=== PATIENT | female | born 1955 | race Caucasian/White ===

== ENCOUNTER → 2016-03-08 | Outpatient (CLI) | payer OTHER ==
--- NOTE | 2016-03-08 17:29 | WOMENS IMAGING REPORT ---
EXAM DESCRIPTION: 3D SCREENING MAMMO BILAT COMPLETED DATE/TIME: 03/08/2016 9:53 am REASON FOR STUDY: Z12.31 ROUTINE SCREENING MAMMO Z12.31 ENCNTR SCREEN MAMMOGRAM FOR MALIGNANT NEOPL ASM OF ESVIN COMPARISON: None. TECHNIQUE: Standard craniocaudal and mediolateral oblique views of each breast recorded using digita l acquisition and breast tomosynthesis. LIMITATIONS: None. FINDINGS: No masses, calcifications or architectural distortion. No areas of suspicion. Read with the assistance of CAD. .[facility] - R2 Cenova Version 1.3 .[facility] Imaging - R2 Cenova Version 1.3 .[facility] Imaging - R2 Cenova Version 2.4 .[facility] - R2 Cenova Version 2.4 .[facility] - R2 Mattress Renovator Version 9.2 BREAST DENSITY: b. There are scattered areas of fibroglandular density. BIRAD: 1 NEGATIVE RECOMMENDATION: ROUTINE SCREENING COMMENT: PATIENT NOTIFIED BY LETTER. The [employer] recommends an annual screening mammogram for women aged 40 years or over. Each patient will receive a reminder prior to the anniversary date of her mammogram. The [employer] (ACR) has developed recommendations for screening MRI of the breast s in certain patient populations, to be used in conjunction with mammography. Breast MRI surveillanc e may be appropriate for women with more than 20% lifetime risk of developing breast cancer as deter mined by genetic testing, significant family history of the disease, or history of mantle radiation f or Hodgkins Disease. ACR Practice Guidelines 2008. DBT Technology DBT is a type of tomographic mammography. With conventional mammography, overlapping breast tissue ma y make lesions difficult to detect, even with good compression. DBT uses an x-ray tube that rotates a round the breast, taking images at different angles. These images are then combined to create thin sl ices of the breast that the radiologist can view as a 3D reconstruction. The Sentisis unit can perform full-field digital mammograms (2D imaging); or DBT (3D imaging); or both, in a combination mode that quickly performs both the mammogram and the tomosynthesis scan while the breast is still compressed. PQRS 6045F: Fluoroscopic imaging is not utilized for breast tomosynthesis. TECHNICAL DOCUMENTATION: FINDING NUMBER: (1) ASSESSMENT: (1) JOB ID: [id number]- All Rights Reserved
== END ==
LOC: WI 08:45
PROVIDERS: ATTEND Family Medicine
DX: Z12.31 Encounter for screening mammogram for malignant neoplasm of breast (principal)
CPT/HCPCS: 77063; G0202; 77067

== ENCOUNTER → 2016-05-04 | Outpatient (CLI) | payer OTHER ==
[2016-05-04 17:20] LABS: FREE T3 3.15 pg/mL (2.77-5.27)
[2016-05-04 17:33] LABS: THYROID STIMULATING HORMONE 1.33 uIU/mL (0.47-4.68)
== END ==
LOC: OD 15:41
PROVIDERS: ATTEND Family Medicine
DX: E89.0 Postprocedural hypothyroidism (principal); E53.9 Vitamin B deficiency, unspecified
CPT/HCPCS: 36415; 82607; 84439; 84443; 84481

== ENCOUNTER 2016-08-25 15:53 | Emergency (ER) | payer OTHER ==
--- NOTE | 2016-08-25 17:07 | RADIOLOGY REPORT (SQ) ---
EXAM DESCRIPTION: CT LTD RENAL STONE PROTOCOL ON COMPLETED DATE/TIME: 08/25/2016 4:48 pm REASON FOR STUDY: Asymptomatic growth hematuria COMPARISON: None. TECHNIQUE: CT scan of the abdomen and pelvis performed without intravenous or oral contrast. Images reviewed with lung, soft tissue, and bone windows. Reconstructed coronal and sagittal MPR images revi ewed. All images stored on PACS. All CT scanners at this facility use dose modulation, iterative reconstruction, and/or weight based d osing when appropriate to reduce radiation dose to as low as reasonably achievable (ALARA). [facility]: Dose Right [facility]: CareDose [facility]: Dose Right [facility]: Teradose 4D [facility]: Smart [employer] RADIATION DOSE: Up-to-date CT equipment and radiation dose reduction techniques were employed. CTDIv ol: 7.1 mGy. DLP: 384 mGy-cm.mGy. LIMITATIONS: None. FINDINGS: LOWER CHEST: No significant findings. No nodules or infiltrates. NON-CONTRASTED LIVER, SPLEEN, ADRENALS: Evaluation limited by lack of IV contrast. No identified sign ificant masses. PANCREAS: No masses. No peripancreatic inflammatory changes. GALLBLADDER: No identified stones by CT criteria. No inflammatory changes to suggest cholecystitis. RIGHT KIDNEY AND URETER: No suspicious masses. Assessment limited by lack of IV contrast. No signif icant calcifications. No hydronephrosis or hydroureter. LEFT KIDNEY AND URETER: No suspicious masses. Assessment limited by lack of IV contrast. No signifi cant calcifications. No hydronephrosis or hydroureter. AORTA AND RETROPERITONEUM: No aneurysm. No retroperitoneal masses or adenopathy. BOWEL AND PERITONEAL CAVITY: Colonic diverticula without acute infectious or inflammatory changes. No free fluid. APPENDIX: Normal. PELVIS, BLADDER, AND ABDOMINAL WALL:No abnormal masses. No free fluid. Bladder normal. BONES: No significant findings. OTHER: No other significant finding. IMPRESSION: No urolithiasis. Diverticulosis without evidence of diverticulitis. TECHNICAL DOCUMENTATION: JOB ID: [id number] Quality ID # [id number]: Final reports with documentation of one or more dose reduction techniques (e.g., Au tomated exposure control, adjustment of the mA and/or kV according to patient size, use of iterative reconstruction technique) 2010 [employer]- All Rights Reserved
[2016-08-25 17:20] LABS: APPEARANCE,URINE CLEAR; BILIRUBIN,URINE NEGATIVE (NEGATIVE); GLUCOSE, URINE NEGATIVE (NEGATIVE); KETONES,URINE NEGATIVE (NEGATIVE); LEUKOCYTE ESTERASE,URINE NEGATIVE (NEGATIVE); NITRITE,URINE NEGATIVE (NEGATIVE); PROTEIN,URINE NEGATIVE (NEGATIVE); URINE SPECIFIC GRAVITY 1.001; UROBILINOGEN,URINE NEGATIVE mg/dL (<2.0)
[2016-08-25 17:30] VITALS: BP 146/63
--- NOTE | 2016-08-25 17:48 | ER Document Report ---
ED GI/ - General Chief Complaint: Pain With Urination Stated Complaint: URINARY PAIN Time Seen by Provider: 08/25/16 16:25 Notes: Patient says that she noted asymptomatic blood in her urine . Patient has a picture on her cell phone showing a container with very definitely bloody looking liquid in it. She has never had that happen before. She had not had any urinary tract or urine stone symptoms. She went to a local urgent care where she was referred for a urine culture and then followed up with her primary care provider, Dr. Tolentino, but patient was never contacted by her primary care provider. After the first day, her symptoms subsided but today, about 11:30 AM, patient began to experience pain in her left side and in the left groin region and feeling like knives running down towards her urethra. She has not had any nausea or vomiting or diarrhea. Has not had any more blood in her urine. Only feeling of urinary urgency but no other UTI symptoms. Has not had a fever. Patient has had a hysterectomy. TRAVEL OUTSIDE OF THE [place] IN LAST 30 DAYS: No - Related Data Allergies/Adverse Reactions: milk Allergy (Mild, Verified 08/25/16 16:04) cephalexin monohydrate [From Keflex] Allergy (Verified 08/25/16 16:04) Ramón Fco syndrome iodine [Iodine] Allergy (Verified 08/25/16 16:04) levofloxacin [From Levaquin] Allergy (Verified 08/25/16 16:04) Ramón Fco syndrome meloxicam [From Mobic] Allergy (Verified 08/25/16 16:04) morphine [Morphine] Allergy (Verified 08/25/16 16:04) Sulfa (Sulfonamide Antibiotics) Allergy (Verified 08/25/16 16:04) cantaloupe Allergy (Uncoded 08/25/16 16:04) itching Past Medical History - Social History Smoking Status: Never Smoker Chew tobacco use (# tins/day): No Frequency of alcohol use: None Drug Abuse: None Family History: Reviewed & Not Pertinent Patient has suicidal ideation: No Patient has homicidal ideation: No - Past Medical History Cardiac Medical History: Reports: Hx Hypercholesterolemia, Hx Heart Murmur Pulmonary Medical History: Reports: Hx Bronchitis, Hx Pneumonia - 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, Hx Sleep Apnea - uses C-PAP EENT Medical History: Reports: Ears - History of Mnire's disease Neurological Medical History: Reports: Hx Cerebrovascular Accident Endocrine Medical History: Reports: Hx Hypothyroidism GI Medical History: Reports: Hx Gastroesophageal Reflux Disease, Hx Hiatal Hernia, Hx Ulcerative Colitis Musculoskeltal Medical History: Reports Hx Arthritis Psychiatric Medical History: Reports: Hx Anxiety, Hx Depression, Hx Post Traumatic Stress Disorder Past Surgical History: Reports: Hx Abdominal Surgery - Wiliam fundoplication, Hx Genitourinary Surgery - wiliam, Hx Gynecologic Surgery - hysterectomy, Hx Hysterectomy, Hx Orthopedic Surgery - rotator cuff bilaterally, Hx Thyroid Surgery, Hx Tonsillectomy - Immunizations Hx Diphtheria, Pertussis, Tetanus Vaccination: Yes Hx Pneumococcal Vaccination: 02/26/08 Review of Systems - Review of Systems Notes: REVIEW OF SYSTEMS: CONSTITUTIONAL : Denies fever. EENT: Denies eye, ear, nose or mouth or throat pain or other symptoms. CARDIOVASCULAR: Denies chest pain. RESPIRATORY: Denies cough, chest congestion, or shortness of breath. GASTROINTESTINAL: See HPI. GENITOURINARY: See HPI. MUSCULOSKELETAL: Denies back or neck pain. Denies joint pain or swelling. SKIN: Denies rash or skin lesions. NEUROLOGICAL: Denies LOC or altered mental status. Denies headache. Denies sensory loss or motor deficits. ALL OTHER SYSTEMS REVIEWED AND NEGATIVE. Physical Exam - Vital signs Vitals: Temp Pulse Resp BP Pulse Ox 97.9 F 94 16 169/76 H 100 08/25/16 16:04 08/25/16 16:04 08/25/16 16:04 08/25/16 16:04 08/25/16 16:04 Interpretation: Normal, Hypertensive - Minimal - Notes Notes: PHYSICAL EXAMINATION: GENERAL: Well-appearing, in no acute distress. HEAD: Atraumatic, normocephalic. EYES: Pupils equal round and reactive to light, extraocular movements intact. ENT: oropharynx clear without exudates. Moist mucous membranes. NECK: Normal range of motion, supple. LUNGS: Breath sounds clear and equal bilaterally. HEART: Regular rate and rhythm without murmurs. ABDOMEN: Soft, nontender. No guarding or rebound. BACK: No tenderness throughout entire back. EXTREMITIES: Normal range of motion without pain. NEUROLOGICAL: Normal speech, normal gait. Normal sensory, motor, and reflex exams. Awake, alert, and oriented x3. Cranial nerves normal. PSYCH: Normal mood, normal affect. SKIN: Warm, dry, no rashes. Course - Vital Signs Vital signs: Temp Pulse Resp BP Pulse Ox 98.2 F 83 16 146/63 H 99 08/25/16 17:29 08/25/16 17:29 08/25/16 17:29 08/25/16 17:29 08/25/16 17:29 - Diagnostic Test Radiology reviewed: Image reviewed, Reports reviewed - CT scan is completely normal. No stones seen anywhere. No evidence of any pathology of any of the organs in the CT scan. Discharge - Discharge Clinical Impression: Hematuria, Dysuria Condition: Stable Disposition: HOME, SELF-CARE Additional Instructions: Hematuria Hematuria, or blood in your urine, can be caused by minor medical problems , such as a bladder infection, or by more serious medical conditions, such as kidney stones or even tumors of the bladder or kidney. If the cause of the hematuria is known (such as a bladder infection) and can be treated, it may not need further evaluation. If the cause is not known, it will usually require further evaluation by a specialist, such as a urologist. In particular, unexplained hematuria in the older patient must be evaluated to rule out a serious condition, such as a bladder or kidney tumor. If the hematuria worsens or you are passing clots and then are unable to urinate, you should be re-evaluated. A catheter may need to be placed in the bladder to permit passage of urine. If you develop high fever, severe pain, or other new or worsening symptoms, return to the Emergency Department for re- evaluation. NORMAL EXAM AND WORKUP: At this time, your examination and workup show no significant abnormality. No significant abnormal physical findings were noted. All laboratory, EKG, and imaging (x-ray, CT scans, ultrasound) studies that were ordered show no significant abnormality. Although your examination and all studies that were ordered showed no significant abnormal finding, there are no examinations and no studies that are 100% accurate. There is always the possibility that some abnormality could exist and not be detected with physical examination or within the limits and capabilities of laboratory and other studies. You should return or follow up as you were instructed on your visit today for further evaluation if your symptoms do not resolve. FOLLOW-UP CARE: If you have been referred to a physician for follow-up care, call the physician s office for an appointment as you were instructed or within the next two days. If you experience worsening or a significant change in your symptoms, notify the physician immediately or return to the Emergency Department at any time for re-evaluation. Follow-up with Dr. Tolentino in her office in the coming week. You will need some form of follow-up to be certain that there was not an abnormal finding in your bladder that was not picked up because we did not use IV contrast today. It is possible that Dr. Tolentino may wish to refer you to a urologist for further evaluation. Referrals: LINA TOLENTINO MD [ACTIVE STAFF] - Follow up in 3-5 days
== END 2016-08-25 17:23 | disposition home or self-care (01) ==
LOC: ER 15:53
DX: R30.0 Dysuria (principal); R31.9 Hematuria, unspecified; E78.00 Pure hypercholesterolemia, unspecified; E03.9 Hypothyroidism, unspecified; K21.9 Gastro-esophageal reflux disease without esophagitis; Z88.2 Allergy status to sulfonamides; Z88.6 Allergy status to analgesic agent; Z91.011 Allergy to milk products; Z86.73 Personal history of transient ischemic attack (TIA), and cerebral infarction without residual deficits; Z90.710 Acquired absence of both cervix and uterus
CPT/HCPCS: 76380; 81001; 99284

== ENCOUNTER 2016-09-26 05:19 | Day surgery (SDC) | payer OTHER ==
[2016-09-24 12:06] LABS: HEMATOCRIT 36.8 % (36.0-47.0); HEMOGLOBIN 12.7 g/dL (12.0-15.5); HGB HCT DIFFERENCE 1.3; MEAN CORPUSCULAR HGB CONC 34.6 g/dL (32.0-36.0); MEAN CORPUSCULAR VOLUME 90 fl (80-97); RED BLOOD COUNT 4.11 10^6/uL (3.72-5.28)
[2016-09-24 12:21] LABS: ANION GAP 9 (5-19); BLOOD UREA NITROGEN 16 mg/dL (7-20); CALCIUM 9.5 mg/dL (8.4-10.2); CARBON DIOXIDE 27 mmol/L (22-30); CHLORIDE 103 mmol/L (98-107); CREATININE RESULT 0.85 mg/dL (0.52-1.25); GLUCOSE 97 mg/dL (75-110); POTASSIUM 4.7 mmol/L (3.6-5.0); SODIUM 139.3 mmol/L (137-145)
[2016-09-24 12:23] LABS: APPEARANCE,URINE CLEAR; BILIRUBIN,URINE NEGATIVE (NEGATIVE); GLUCOSE, URINE NEGATIVE (NEGATIVE); KETONES,URINE NEGATIVE (NEGATIVE); LEUKOCYTE ESTERASE,URINE NEGATIVE (NEGATIVE); NITRITE,URINE NEGATIVE (NEGATIVE); PROTEIN,URINE NEGATIVE (NEGATIVE); UROBILINOGEN,URINE NEGATIVE mg/dL (<2.0)
--- NOTE | 2016-09-24 13:39 | EKG REPORT ---
SEVERITY:- NORMAL ECG - SINUS RHYTHM : Confirmed by: Jose Diaz MD 24-Sep-2016 13:38:28
--- NOTE | 2016-09-24 15:02 | RADIOLOGY REPORT (SQ) ---
EXAM DESCRIPTION: CHEST PA/LATERAL COMPLETED DATE/TIME: 09/24/2016 11:29 am REASON FOR STUDY: PRE OP COMPARISON: 01/31/2016 EXAM PARAMETERS: NUMBER OF VIEWS: two views TECHNIQUE: Digital Frontal and Lateral radiographic views of the chest acquired. RADIATION DOSE: NA LIMITATIONS: none FINDINGS: LUNGS AND PLEURA: No opacities, masses or pneumothorax. No pleural effusion. MEDIASTINUM AND HILAR STRUCTURES: No masses or contour abnormalities. HEART AND VASCULAR STRUCTURES: Heart normal size. No evidence for failure. BONES: No acute findings. HARDWARE: None in the chest. OTHER: No other significant finding. IMPRESSION: NO SIGNIFICANT RADIOGRAPHIC FINDING IN THE CHEST. TECHNICAL DOCUMENTATION: JOB ID: [id number] [employer]- All Rights Reserved
[~2016-09-26 05:19] MED LIST: CLINDAMYCIN 600 MG/D5W RTU 600 MG/50 ML RTUPB IV PRN; LACTATED RINGERS 1000 ML IV PRN; LIDOCAINE 0.5% INJ-PF (5 MG/ML) 50 ML SDV SUBCUT PRN
[2016-09-26] MEDS ORDERED: LIDOCAINE 1% INJ-PF (10 MG/ML) 30 ML SDV ONE (05:49)
[2016-09-26] MEDS ORDERED: MIDAZOLAM 2 MG/2 ML INJ ONE (07:07)
[2016-09-26] MEDS ORDERED: FENTANYL CITRATE INJ/PF 100 MCG/2 ML AMPUL ONE ×2 (07:07→09:00)
[2016-09-26] MEDS ORDERED: PROPOFOL INJ 200 MG/20 ML VIAL IV ONE (07:08)
[2016-09-26] MEDS ORDERED: HYDROMORPHONE HCL INJ/PF 2 MG/ML AMPULE ONE (07:09)
[2016-09-26] MEDS ORDERED: LIDOCAINE 0.5%/EPINEPHRINE INJ 50 ML VIAL ONE (07:25)
[2016-09-26] MEDS ORDERED: PROMETHAZINE HCL INJ 25 MG/1 ML VIAL IV PRN (07:53)
[2016-09-26] MEDS ORDERED: DIPHENHYDRAMINE HCL 50 MG/ML VIAL IV PRN (07:53)
[2016-09-26] MEDS ORDERED: FENTANYL CITRATE INJ/PF 100 MCG/2 ML AMPUL IV PRN ×3 (07:53)
[2016-09-26] MEDS ORDERED: OXYCODONE-ACETAMINOPHEN 5-325 MG TABLET PO PRN (08:52)
[2016-09-26] MEDS ORDERED: PROMETHAZINE HCL INJ 25 MG/1 ML VIAL IM PRN (08:52)
[2016-09-26] MEDS ORDERED: IBUPROFEN 800 MG TABLET PO SCH (10:00)
[2016-09-26] MEDS ORDERED: LIDOCAINE 2% INJ-PF (20 MG/ML) 10 ML AMPUL ONE (11:35)
[2016-09-26] MEDS ORDERED: SUCCINYLCHOLINE CHLORIDE INJ 200 MG/10 ML VIAL ONE (11:35)
[2016-09-26] MEDS ORDERED: DEXAMETHASONE SOD PHOSPHATE INJ 4 MG/1 ML VIAL ONE (11:35)
[2016-09-26] MEDS ORDERED: ONDANSETRON HCL INJ/PF 4 MG/2 ML SDV ONE (11:35)
[2016-09-26 11:39] VITALS: BP 123/78
--- NOTE | 2016-09-26 15:05 | OPERATIVE REPORT E ---
Operative Report NAME: PRESTON CABALLERO : 1955 AGE: 61Y DATE OF SURGERY: 09/26/2016 ROOM: PREOPERATIVE DIAGNOSES: 1. Cystocele. 2. Rectocele. POSTOPERATIVE DIAGNOSES: 1. Cystocele. 2. Rectocele. PROCEDURES: 1. Anterior/posterior colporrhaphy. 2. Perineoplasty. SURGEON: MALORIE BLANTON M.D. ANESTHESIA: General endotracheal. FINDINGS: A small cystocele, moderate rectocele. Post procedure, no sutures were noted in the rectal puncture tear. Good support was noted. ESTIMATED BLOOD LOSS: 25 mL. INDICATIONS FOR PROCEDURE: The patient has symptomatic rectocele, small cystocele, only occasional stress incontinence . She is not currently sexually active and is resistant to any type of mesh usage. No enterocele formation was noted preoperatively. DESCRIPTION OF PROCEDURE: The patient was taken to the operating room and placed in the modified lithotomy position. Adequate anesthesia was ascertained. Prepped and draped in the usual manner for a vaginal repair. The anterior compartment was addressed first, which was infiltrated with approximately 10 mL of 1% lidocaine plain. This was after Olivares catheter had been inserted and performed. Midline incision was performed. The incision was extended over the area of the defect and lateral dissection ensued demonstrating good fashion using a 2-0 Vicryl stitch. Excess vaginal tissue was excised and the vagina was then oversewn with 2-0 chromic catgut . Attention was then turned to the perineum where a perineoplasty incision was made. This extended down after infiltration of the posterior vagina in the midline to up above the rectal defect, which was delineated by a finger in the rectum. Rectal tissue was identified and laterally after dissection ensued and this was brought together in interrupted fashion using a 2-0 Vicryl stitch. Excess vaginal tissue was then removed and the remainder of the incision was closed in the usual fashion using 2-0 chromic and interrupted approximately a finger and a half introitus diameter present post procedure with good perineal supports with a combination of due to the minimum nature of the anterior colporrhaphy, cystoscopy was not performed. Olivares catheter was removed post procedure. The patient was taken to recovery room in stable condition. DICTATING PHYSICIAN: MALORIE BLANTON M.D. [id number] PHY#: [id number] ID: [id number] JOB#: [id number] ACCT: [id number] cc:MALORIE BLANTON M.D. >
== END 2016-09-26 11:05 | disposition home or self-care (01) ==
LOC: OROUT 05:19
PROVIDERS: ATTEND Specialist
PROC: 0JQC0ZZ Repair Pelvic Region Subcutaneous Tissue and Fascia, Open Approach (ICD-10-PCS; 2016-09-26)
PROC: 0WQNXZZ Repair Female Perineum, External Approach (ICD-10-PCS; 2016-09-26)
PROC: 0JQC0ZZ Repair Pelvic Region Subcutaneous Tissue and Fascia, Open Approach (ICD-10-PCS; principal; 2016-09-26 07:15)
DX: N81.10 Cystocele, unspecified (principal); N81.6 Rectocele; E89.0 Postprocedural hypothyroidism; G43.909 Migraine, unspecified, not intractable, without status migrainosus; R73.03 Prediabetes; E78.00 Pure hypercholesterolemia, unspecified; G47.30 Sleep apnea, unspecified; E04.2 Nontoxic multinodular goiter; H81.09 Meniere's disease, unspecified ear; F32.9 Major depressive disorder, single episode, unspecified; Z88.5 Allergy status to narcotic agent; Z86.73 Personal history of transient ischemic attack (TIA), and cerebral infarction without residual deficits; Z88.2 Allergy status to sulfonamides
CPT/HCPCS: 93005; 86900; 86901; 36415; 86850; 82962; 85027; 80048; 81001; 71020; 93010; 57260; J2250; J1100; J3010; J3490 ×2; J0330; J2405; J2704; 942; J1170

== ENCOUNTER → 2017-05-20 | Outpatient (CLI) | payer OTHER ==
--- NOTE | 2017-05-22 17:27 | WOMENS IMAGING REPORT ---
EXAM DESCRIPTION: BILAT SCREENING MAMMO W/CAD COMPLETED DATE/TIME: 05/20/2017 8:13 am REASON FOR STUDY: SCREENING MAMMO Z12.31 ENCNTR SCREEN MAMMOGRAM FOR MALIGNANT NEOPLASM OF ESVIN COMPARISON: None. TECHNIQUE: Standard craniocaudal and mediolateral oblique views of each breast recorded using digita l acquisition. LIMITATIONS: None. FINDINGS: No masses, calcifications or architectural distortion. No areas of suspicion. Read with the assistance of CAD. .[facility] - R2 Cenova Version 1.3 .[facility] Imaging - R2 Cenova Version 1.3 .[facility] Imaging - R2 Cenova Version 2.4 .[facility] - R2 Cenova Version 2.4 .[facility] - R2 Orthotic/Prosthetic Clinician Version 9.2 IMPRESSION: NORMAL MAMMOGRAM. BIRADS 1. BREAST DENSITY: b. There are scattered areas of fibroglandular density. BIRAD: 1 NEGATIVE RECOMMENDATION: ROUTINE SCREENING COMMENT: The patient has been notified of the results by letter per MQSA requirements. Additional no tification policies are in place for contacting patient with suspicious or incomplete findings. Quality ID #[id number]: The [employer] recommends an annual screening mammogram for women aged 40 years or over. This facility utilizes a reminder system to ensure that all patients receive reminder letters, and/or direct phone calls for appointments. This includes reminders for routine scr eening mammograms, diagnostic mammograms, or other Breast Imaging Interventions when appropriate. Th is patient will be placed in the appropriate reminder system. The [employer] (ACR) has developed recommendations for screening MRI of the breast s in certain patient populations, to be used in conjunction with mammography. Breast MRI surveillanc e may be appropriate for women with more than 20% lifetime risk of developing breast cancer as deter mined by genetic testing, significant family history of the disease, or history of mantle radiation f or Hodgkins Disease. ACR Practice Guidelines 2008. TECHNICAL DOCUMENTATION: FINDING NUMBER: (1) ASSESSMENT: (1) JOB ID: [id number] [employer]- All Rights Reserved Reading location - IP/workstation name: [email or web address]
== END ==
LOC: WI 07:45
PROVIDERS: ATTEND Family Medicine
DX: Z12.31 Encounter for screening mammogram for malignant neoplasm of breast (principal)
CPT/HCPCS: 77067

== ENCOUNTER 2017-07-10 08:41 | Emergency (ER) | payer OTHER ==
[2017-07-10] MEDS ORDERED: ASPIRIN 325 MG TABLET PO ONE (09:38)
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
[2017-07-10 10:30] LABS: ABSOLUTE EOSINOPHILS # (AUTO) 0.1 10^3/uL (0.0-0.6); ABSOLUTE LYMPHOCYTES (AUTO) 1.2 10^3/uL (0.5-4.7); ABSOLUTE MONOCYTES (AUTO) 0.4 10^3/uL (0.1-1.4); ABSOLUTE NEUT (AUTO) 4.6 10^3/uL (1.7-8.2); BASOPHILS % (AUTO) 0.7 % (0-2); EOSINOPHILS % (AUTO) 1.3 % (0-6); HEMATOCRIT 39.9 % (36.0-47.0); HEMOGLOBIN 13.5 g/dL (12.0-15.5); LYMPHOCYTES % (AUTO) 18.4 % (13-45); MEAN CORPUSCULAR HGB CONC 33.7 g/dL (32.0-36.0); MEAN CORPUSCULAR VOLUME 92 fl (80-97); MONOCYTES % (AUTO) 6.2 % (3-13); PLATELET COUNT 246 10^3/uL (150-450); RED BLOOD COUNT 4.34 10^6/uL (3.72-5.28); RED CELL DISTRIBUTION WIDTH 14.3 % (11.5-14.0); SEGMENTED NEUTROPHILS % (AUTO) 73.4 % (42-78); TOTAL CELLS COUNTED % (AUTO) 100 %; WHITE BLOOD COUNT 6.3 10^3/uL (4.0-10.5)
[2017-07-10 10:33] LABS: APPEARANCE,URINE CLEAR; BILIRUBIN,URINE NEGATIVE (NEGATIVE); COLOR,URINE STRAW; GLUCOSE, URINE NEGATIVE (NEGATIVE); KETONES,URINE NEGATIVE (NEGATIVE); LEUKOCYTE ESTERASE,URINE TRACE (NEGATIVE); NITRITE,URINE NEGATIVE (NEGATIVE); PROTEIN,URINE NEGATIVE (NEGATIVE); UROBILINOGEN,URINE NEGATIVE mg/dL (<2.0)
[2017-07-10 10:49] LABS: ANION GAP 12 (5-19); BLOOD UREA NITROGEN 20 mg/dL (7-20); CALCIUM 9.6 mg/dL (8.4-10.2); CARBON DIOXIDE 25 mmol/L (22-30); CHLORIDE 103 mmol/L (98-107); GLUCOSE 108 mg/dL (75-110); POTASSIUM 4.3 mmol/L (3.6-5.0); SODIUM 139.7 mmol/L (137-145)
--- NOTE | 2017-07-10 11:01 | RADIOLOGY REPORT (SQ) ---
EXAM DESCRIPTION: CHEST 2 VIEWS COMPLETED DATE/TIME: 07/10/2017 10:40 am REASON FOR STUDY: MP, chest pain COMPARISON: 02/02/2016 EXAM PARAMETERS: NUMBER OF VIEWS: two views TECHNIQUE: Digital Frontal and Lateral radiographic views of the chest acquired. RADIATION DOSE: NA LIMITATIONS: none FINDINGS: LUNGS AND PLEURA: No acute infiltrates. Chronic blunting left costophrenic angle. MEDIASTINUM AND HILAR STRUCTURES: No masses or contour abnormalities. HEART AND VASCULAR STRUCTURES: Heart normal size. No evidence for failure. BONES: No acute findings. HARDWARE: None in the chest. OTHER: No other significant finding. IMPRESSION: Nothing acute. TECHNICAL DOCUMENTATION: JOB ID: [id number] [employer]- All Rights Reserved Reading location - IP/workstation name: [email or web address]
[2017-07-10 14:14] VITALS: BP 146/82
--- NOTE | 2017-07-10 22:45 | EKG REPORT ---
SEVERITY:- NORMAL ECG - SINUS RHYTHM : Confirmed by: Iraj Jarrell 10-Jul-2017 19:44:55
== END 2017-07-10 14:24 | disposition home or self-care (01) ==
LOC: ER 08:41
DX: R07.9 Chest pain, unspecified (principal); R07.89 Other chest pain; F41.9 Anxiety disorder, unspecified; Z79.899 Other long term (current) drug therapy
CPT/HCPCS: 36415; 71046; 80048; 81001; 84484; 85025; 93005; 93010; 99285

== ENCOUNTER → 2017-08-13 | Outpatient (CLI) | payer OTHER ==
[2017-08-13 13:28] LABS: ABSOLUTE LYMPHOCYTES (AUTO) 1.9 10^3/uL (0.5-4.7); ABSOLUTE MONOCYTES (AUTO) 0.4 10^3/uL (0.1-1.4); ABSOLUTE NEUT (AUTO) 3.7 10^3/uL (1.7-8.2); BASOPHILS % (AUTO) 0.6 % (0-2); EOSINOPHILS % (AUTO) 0.6 % (0-6); HEMATOCRIT 43.4 % (36.0-47.0); HEMOGLOBIN 14.9 g/dL (12.0-15.5); LYMPHOCYTES % (AUTO) 31.6 % (13-45); MEAN CORPUSCULAR HGB CONC 34.2 g/dL (32.0-36.0); MEAN CORPUSCULAR VOLUME 94 fl (80-97); MONOCYTES % (AUTO) 6.7 % (3-13); PLATELET COUNT 264 10^3/uL (150-450); RED BLOOD COUNT 4.64 10^6/uL (3.72-5.28); RED CELL DISTRIBUTION WIDTH 13.5 % (11.5-14.0); SEGMENTED NEUTROPHILS % (AUTO) 60.5 % (42-78); TOTAL CELLS COUNTED % (AUTO) 100 %
[2017-08-13 13:48] LABS: ALANINE AMINOTRANSFERASE 43 U/L (9-52); ALBUMIN 4.6 g/dL (3.5-5.0); ALKALINE PHOSPHATASE 77 U/L (38-126); ANION GAP 11 (5-19); ASPARTATE AMINO TRANSFERASE 39 U/L (14-36); BILIRUBIN,DIRECT 0.3 mg/dL (0.0-0.4); BILIRUBIN,TOTAL 0.5 mg/dL (0.2-1.3); BLOOD UREA NITROGEN 18 mg/dL (7-20); CALCIUM 10.3 mg/dL (8.4-10.2); CARBON DIOXIDE 29 mmol/L (22-30); CHLORIDE 104 mmol/L (98-107); GLUCOSE 93 mg/dL (75-110); IRON(TIBC) 116.7 ug/dL (37-170); POTASSIUM 4.6 mmol/L (3.6-5.0); SODIUM 143.5 mmol/L (137-145); TOTAL PROTEIN 7.2 g/dL (6.3-8.2)
[2017-08-13 14:13] LABS: FREE T3 4.27 pg/mL (2.77-5.27); FREE T4 (FREE THYROXINE) 1.52 ng/dL (0.78-2.19)
[2017-08-13 14:28] LABS: THYROID STIMULATING HORMONE 0.44 uIU/mL (0.47-4.68)
== END ==
LOC: OD 12:33
PROVIDERS: ATTEND Family Medicine
DX: D50.9 Iron deficiency anemia, unspecified (principal); R73.9 Hyperglycemia, unspecified; E89.0 Postprocedural hypothyroidism; Z79.899 Other long term (current) drug therapy
CPT/HCPCS: 36415; 80053; 82728; 83036; 83540; 83550; 84439; 84443; 84481; 85025

== ENCOUNTER → 2017-08-15 | Outpatient (CLI) | payer OTHER ==
--- NOTE | 2017-08-15 14:01 | RADIOLOGY REPORT (SQ) ---
EXAM DESCRIPTION: KNEE LEFT 2 VIEWS COMPLETED DATE/TIME: 08/15/2017 1:12 pm REASON FOR STUDY: LEFT KNEE PAIN (M25.562) M25.562 PAIN IN LEFT KNEE COMPARISON: None. NUMBER OF VIEWS: Two views TECHNIQUE: AP and lateral radiographic images acquired of the left knee. LIMITATIONS: None. FINDINGS: MINERALIZATION: Normal. BONES: No acute fracture or dislocation. No worrisome bone lesions. JOINT: No effusion. SOFT TISSUES: No soft tissue swelling. No radio-opaque foreign body. OTHER: No other significant finding. IMPRESSION: NEGATIVE STUDY OF THE LEFT KNEE. NO RADIOGRAPHIC EVIDENCE OF ACUTE INJURY. TECHNICAL DOCUMENTATION: JOB ID: [id number] [employer]- All Rights Reserved Reading location - IP/workstation name: [email or web address]
== END ==
LOC: RAD 12:48
PROVIDERS: ATTEND Family Medicine
DX: M25.562 Pain in left knee (principal)

== ENCOUNTER → 2017-09-21 | Outpatient (CLI) | payer OTHER ==
--- NOTE | 2017-09-21 11:11 | RADIOLOGY REPORT (SQ) ---
EXAM DESCRIPTION: MRI HEAD COMBO COMPLETED DATE/TIME: 09/21/2017 10:31 am REASON FOR STUDY: ALTERED MENTAL STATUS R41.82 ALTERED MENTAL STATUS, UNSPECIFIED COMPARISON: 2015 CT. TECHNIQUE: Multiplanar imaging includes noncontrasted T1, T2, FLAIR, diffusion with ADC map and post gadolinium contrast T1 sequences. Images stored on PACS. CONTRAST TYPE AND DOSE: 15 mL Prohance. RENAL FUNCTION: GFR > 60. LIMITATIONS: None. FINDINGS: ANATOMY: No anomalies. Normal vascular flow voids. Pituitary fossa normal. CSF SPACES: Normal in size and contour. No hemorrhage. CEREBRUM: No hemorrhage or mass or shift or hydrocephalus. Chronic spotty FLAIR hyperintense small v essel disease. No enhancing lesions. POSTERIOR FOSSA: No signal alteration. No hemorrhage. No edema, masses, or mass effect. Internal milly tory canals, cerebellopontine angles, mastoids normal. No enhancing lesions. No abnormal enhancement post contrast. DIFFUSION IMAGING: Negative for acute or subacute infarction. ORBITS: No masses. Globes normal. PARANASAL SINUSES: No fluid levels. Mucosa normal. OTHER: No other significant finding. IMPRESSION: Mild chronic small vessel changes. No acute intracranial abnormality. No enhancing les ions. EVIDENCE OF ACUTE STROKE: NO. TECHNICAL DOCUMENTATION: JOB ID: [id number] [employer] All Rights Reserved Reading location - IP/workstation name: [email or web address]
== END ==
LOC: RAD 09:13
PROVIDERS: ATTEND Family Medicine
DX: R41.82 Altered mental status, unspecified (principal)
CPT/HCPCS: 70553; A9576

== ENCOUNTER → 2018-02-22 | Outpatient (CLI) | payer OTHER ==
[2018-02-22 10:39] LABS: ABSOLUTE LYMPHOCYTES (AUTO) 1.4 10^3/uL (0.5-4.7); ABSOLUTE MONOCYTES (AUTO) 0.3 10^3/uL (0.1-1.4); ABSOLUTE NEUT (AUTO) 2.4 10^3/uL (1.7-8.2); BASOPHILS % (AUTO) 0.7 % (0-2); EOSINOPHILS % (AUTO) 0.8 % (0-6); HEMATOCRIT 40.5 % (36.0-47.0); HEMOGLOBIN 14.1 g/dL (12.0-15.5); LYMPHOCYTES % (AUTO) 33.2 % (13-45); MEAN CORPUSCULAR HGB CONC 34.9 g/dL (32.0-36.0); MEAN CORPUSCULAR VOLUME 92 fl (80-97); MONOCYTES % (AUTO) 6.9 % (3-13); PLATELET COUNT 240 10^3/uL (150-450); RED BLOOD COUNT 4.42 10^6/uL (3.72-5.28); RED CELL DISTRIBUTION WIDTH 12.5 % (11.5-14.0); SEGMENTED NEUTROPHILS % (AUTO) 58.4 % (42-78); TOTAL CELLS COUNTED % (AUTO) 100 %; WHITE BLOOD COUNT 4.1 10^3/uL (4.0-10.5)
[2018-02-22 10:48] LABS: ALANINE AMINOTRANSFERASE 15 U/L (9-52); ALBUMIN 3.9 g/dL (3.5-5.0); ALKALINE PHOSPHATASE 73 U/L (38-126); ANION GAP 7 (5-19); ASPARTATE AMINO TRANSFERASE 23 U/L (14-36); BILIRUBIN,DIRECT 0.2 mg/dL (0.0-0.4); BILIRUBIN,TOTAL 0.5 mg/dL (0.2-1.3); BLOOD UREA NITROGEN 13 mg/dL (7-20); CALCIUM 10.2 mg/dL (8.4-10.2); CARBON DIOXIDE 27 mmol/L (22-30); CHLORIDE 104 mmol/L (98-107); CHOLESTEROL 236.37 mg/dL (0-200); GLUCOSE 110 mg/dL (75-110); IRON(TIBC) 154.4 ug/dL (37-170); POTASSIUM 4.4 mmol/L (3.6-5.0); SODIUM 138.1 mmol/L (137-145); TOTAL PROTEIN 6.4 g/dL (6.3-8.2); TRIGLYCERIDES 280 mg/dL (<150)
[2018-02-22 10:59] LABS: DIRECT LDL 121 mg/dL (<100)
[2018-02-22 11:04] LABS: FREE T3 3.83 pg/mL (2.77-5.27); FREE T4 (FREE THYROXINE) 1.3 ng/dL (0.78-2.19)
[2018-02-22 11:18] LABS: THYROID STIMULATING HORMONE 0.2 uIU/mL (0.47-4.68)
== END ==
LOC: OD 08:59
PROVIDERS: ATTEND Family Medicine
DX: R73.9 Hyperglycemia, unspecified (principal); E89.0 Postprocedural hypothyroidism; E78.5 Hyperlipidemia, unspecified; D50.9 Iron deficiency anemia, unspecified
CPT/HCPCS: 36415; 80048; 80061; 80076; 82306; 82607; 83036; 83540; 83550; 84439; 84443; 84481; 85025

== ENCOUNTER → 2018-03-11 | Outpatient (CLI) | payer OTHER ==
[2018-03-12 06:39] LABS: HEPATITIS C VIRUS AB <0.1 s/co ratio (0.0-0.9)
== END ==
LOC: OD 12:17
PROVIDERS: ATTEND Family Medicine
DX: Z11.59 Encounter for screening for other viral diseases (principal)
CPT/HCPCS: 36415; 86803; 86804

== ENCOUNTER 2018-07-21 12:41 | Observation (INO) | payer MEDICARE, OTHER ==
--- NOTE | 2018-07-21 13:11 | ER Document Report ---
ED Medical Screen (RME) - General Chief Complaint: Chest Pain Stated Complaint: CHEST PAIN Time Seen by Provider: 07/21/18 13:09 Primary Care Provider: LINA TOLENTINO MD [Primary Care Provider] - Follow up as needed TRAVEL OUTSIDE OF THE [place] IN LAST 30 DAYS: No - HPI Notes: 07/21/18 13:10 Patient is a 63-year-old female with a previous history of CVA, anxiety/depression, hypothyroidism, and multiple other surgeries who presents complaining of intermittent chest pain on the left side over the past 4 days. Patient states that she has had some occasional nausea as well. No diaphoresis. Patient states that pressure does make the pain worse when she pushes on her chest. Patient states that she has started noticing pain to the left arm. Denies any significant cardiopulmonary medical history otherwise. She is eating and drinking without difficulty. She is urinating normally and having normal bowel movements. Denies any prolonged immobilization, distance travel, recent surgery/trauma, personal cancer history, hormone use, smoking, or previous DVT/PE. Denies GAGE, fever, neck pain, URI, SOB, Abd pain, or rash. I have treated and performed a rapid initial assessment of this patient. A comprehensive ED assessment and evaluation of the patient, analysis of test results and completion of medical decision making process will be conducted by additional ED providers. PHYSICAL EXAMINATION: GENERAL: Well-appearing, well-nourished and in no acute distress. A&Ox4. Answers questions appropriately. LUNGS: Breath sounds clear to auscultation bilaterally and equal. No wheezes rales or rhonchi. HEART: Regular rate and rhythm without murmurs, rubs, gallops. ABDOMEN: Soft, nondistended abdomen. No guarding, no rebound. Normal bowel sounds present. No CVA tenderness bilaterally. Grossly nontender (cannot elicit thorough abd exam w/o table, however). Extremities: No cyanosis, clubbing, or edema b/l. Keshawn negative bilaterally. No lower extremity asymmetry. NEUROLOGICAL: Normal speech, normal gait. PSYCH: Normal mood, normal affect. - Related Data Allergies/Adverse Reactions: cephalexin monohydrate [From Keflex] Allergy (Verified 07/21/18 12:42) Ramón Fco syndrome iodine [Iodine] Allergy (Verified 07/21/18 12:42) Hives levofloxacin [From Levaquin] Allergy (Verified 07/21/18 12:42) Ramón Fco syndrome meloxicam [From Mobic] Allergy (Verified 07/21/18 12:42) morphine [Morphine] Allergy (Verified 07/21/18 12:42) Hives Sulfa (Sulfonamide Antibiotics) Allergy (Verified 07/21/18 12:42) serum sickness milk Adverse Reaction (Mild, Verified 07/21/18 12:42) GI cantaloupe Allergy (Uncoded 07/21/18 12:42) itching Past Medical History - Past Medical History Cardiac Medical History: Reports: Hx Hypercholesterolemia, Hx Heart Murmur Denies: Hx Heart Attack, Hx Hypertension Pulmonary Medical History: Reports: Hx Pneumonia - 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 Denies: Hx Seizures Endocrine Medical History: Reports: Hx Hypothyroidism Renal/ Medical History: Denies: Hx Peritoneal Dialysis GI Medical History: Reports: Hx Gastritis, Hx Gastroesophageal Reflux Disease, Hx Hiatal Hernia, Hx Ulcerative Colitis, Hx Colonoscopy, Hx Endoscopy Musculoskeltal Medical History: Reports Hx Arthritis, Reports Hx Musculoskeletal Trauma, Reports Hx Systemic Lupus Erythematosus - hx of pre lupus, no issues now Psychiatric Medical History: Reports: Hx Anxiety, Hx Depression, Hx Post Traumatic Stress Disorder Past Surgical History: Reports: Hx Abdominal Surgery - Wiliam fundoplication, Hx Genitourinary Surgery - wiliam, Hx Gynecologic Surgery - hysterectomy, Hx Hysterectomy, Hx Nose Surgery - Deviated septum repair, Hx Oral Surgery - [place] teeth, Hx Orthopedic Surgery - rotator cuff bilaterally, Hx Thyroid Surgery - Thyroidectomy, Hx Tonsillectomy - Immunizations Immunizations up to date: Yes Hx Diphtheria, Pertussis, Tetanus Vaccination: Yes Physical Exam - Vital signs Vitals: Temp Pulse Resp BP Pulse Ox 98.2 F 76 16 144/70 H 97 07/21/18 12:57 07/21/18 12:57 07/21/18 12:57 07/21/18 12:57 07/21/18 12:57 Course - Vital Signs Vital signs: Temp Pulse Resp BP Pulse Ox 98.2 F 76 16 144/70 H 97 07/21/18 12:57 07/21/18 12:57 07/21/18 12:57 07/21/18 12:57 07/21/18 12:57 Doctor's Discharge - Discharge Referrals: LINA TOLENTINO MD [Primary Care Provider] - Follow up as needed
[2018-07-21 13:44] LABS: ABSOLUTE BASOPHILS # (AUTO) 0.1 10^3/uL (0.0-0.2); ABSOLUTE EOSINOPHILS # (AUTO) 0.1 10^3/uL (0.0-0.6); ABSOLUTE LYMPHOCYTES (AUTO) 1.5 10^3/uL (0.5-4.7); ABSOLUTE MONOCYTES (AUTO) 0.4 10^3/uL (0.1-1.4); ABSOLUTE NEUT (AUTO) 3.7 10^3/uL (1.7-8.2); BASOPHILS % (AUTO) 1.1 % (0-2); EOSINOPHILS % (AUTO) 1.1 % (0-6); HEMOGLOBIN 13.7 g/dL (12.0-15.5); LYMPHOCYTES % (AUTO) 26.7 % (13-45); MEAN CORPUSCULAR HEMOGLOBIN 31.1 pg (27.0-33.4); MEAN CORPUSCULAR HGB CONC 33.5 g/dL (32.0-36.0); MEAN CORPUSCULAR VOLUME 93 fl (80-97); MONOCYTES % (AUTO) 6.4 % (3-13); PLATELET COUNT 235 10^3/uL (150-450); RED BLOOD COUNT 4.41 10^6/uL (3.72-5.28); RED CELL DISTRIBUTION WIDTH 13.2 % (11.5-14.0); SEGMENTED NEUTROPHILS % (AUTO) 64.7 % (42-78); TOTAL CELLS COUNTED % (AUTO) 100 %; WHITE BLOOD COUNT 5.7 10^3/uL (4.0-10.5)
--- NOTE | 2018-07-21 13:46 | RADIOLOGY REPORT (SQ) ---
EXAM DESCRIPTION: CHEST SINGLE VIEW COMPLETED DATE/TIME: 07/21/2018 1:37 pm REASON FOR STUDY: CP COMPARISON: 04/30/2018 EXAM PARAMETERS: NUMBER OF VIEWS: One view. TECHNIQUE: Single frontal radiographic view of the chest acquired. RADIATION DOSE: NA LIMITATIONS: None. FINDINGS: LUNGS AND PLEURA: Unchanged elevation of the left hemidiaphragm. MEDIASTINUM AND HILAR STRUCTURES: No masses. Contour normal. HEART AND VASCULAR STRUCTURES: Heart normal in size. Normal vasculature. BONES: No acute findings. HARDWARE: None in the chest. OTHER: No other significant finding. IMPRESSION: No acute abnormality of the lungs. Unchanged elevation of the left hemidiaphragm. TECHNICAL DOCUMENTATION: JOB ID: [id number] [employer]- All Rights Reserved Reading location - IP/workstation name: [email or web address]
[2018-07-21 14:02] LABS: ALANINE AMINOTRANSFERASE 32 U/L (9-52); ALBUMIN 4.6 g/dL (3.5-5.0); ALKALINE PHOSPHATASE 87 U/L (38-126); ANION GAP 11 (5-19); ASPARTATE AMINO TRANSFERASE 33 U/L (14-36); BILIRUBIN,DIRECT 0.3 mg/dL (0.0-0.4); BILIRUBIN,TOTAL 0.5 mg/dL (0.2-1.3); BLOOD UREA NITROGEN 21 mg/dL (7-20); CALCIUM 10.3 mg/dL (8.4-10.2); CARBON DIOXIDE 29 mmol/L (22-30); CHLORIDE 102 mmol/L (98-107); GLUCOSE 95 mg/dL (75-110); POTASSIUM 4.5 mmol/L (3.6-5.0); SODIUM 141.7 mmol/L (137-145); TOTAL PROTEIN 7.2 g/dL (6.3-8.2)
--- NOTE | 2018-07-21 14:03 | EKG REPORT ---
SEVERITY:- NORMAL ECG - SINUS RHYTHM : Confirmed by: Genet Del Rosario MD 21-Jul-2018 14:02:43
--- NOTE | 2018-07-21 15:14 | ER Document Report ---
ED General - General Chief Complaint: Chest Pain Stated Complaint: CHEST PAIN Time Seen by Provider: 07/21/18 13:09 Mode of Arrival: Ambulatory Information source: Patient Notes: This is a 63-year-old female with a history of Sjogren's syndrome, CVA in the past (left-sided weakness at that time), mitral valve prolapse. Patient presents to the emergency room with intermittent left-sided chest discomfort radiating to the left neck and left arm occurring several times over the last 4 days which is been associated with stress. Patient is not a smoker. She denies any pain at this time. TRAVEL OUTSIDE OF THE [place] IN LAST 30 DAYS: No - HPI Onset: Last week Onset/Duration: Gradual Quality of pain: Dull Severity: Moderate Pain Level: 3 Associated symptoms: Chest pain. denies: Nonproductive cough, Productive cough, Fever, Nausea, Vomiting, Shortness of breath Exacerbated by: Other - Stress Relieved by: Denies Similar symptoms previously: No Recently seen / treated by doctor: No - Related Data Allergies/Adverse Reactions: cephalexin monohydrate [From Keflex] Allergy (Verified 07/21/18 12:42) Ramón Fco syndrome iodine [Iodine] Allergy (Verified 07/21/18 12:42) Hives levofloxacin [From Levaquin] Allergy (Verified 07/21/18 12:42) Ramón Fco syndrome meloxicam [From Mobic] Allergy (Verified 07/21/18 12:42) morphine [Morphine] Allergy (Verified 07/21/18 12:42) Hives Sulfa (Sulfonamide Antibiotics) Allergy (Verified 07/21/18 12:42) serum sickness milk Adverse Reaction (Mild, Verified 07/21/18 12:42) GI cantaloupe Allergy (Uncoded 07/21/18 12:42) itching Past Medical History - General Information source: Patient - Social History Smoking Status: Never Smoker Cigarette use (# per day): No Chew tobacco use (# tins/day): No Frequency of alcohol use: None Drug Abuse: None Lives with: Family Family History: Arthritis, Hyperlipidemia, Hypertension, Thyroid Disfunction Patient has suicidal ideation: No Patient has homicidal ideation: No - Past Medical History Cardiac Medical History: Reports: Hx Hypercholesterolemia, Hx Heart Murmur Denies: Hx Heart Attack, Hx Hypertension Pulmonary Medical History: Reports: Hx Pneumonia - 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 Denies: Hx Seizures Endocrine Medical History: Reports: Hx Hypothyroidism Renal/ Medical History: Denies: Hx Peritoneal Dialysis GI Medical History: Reports: Hx Gastritis, Hx Gastroesophageal Reflux Disease, Hx Hiatal Hernia, Hx Ulcerative Colitis, Hx Colonoscopy, Hx Endoscopy Musculoskeletal Medical History: Reports Hx Arthritis, Reports Hx Musculoskeletal Trauma, Reports Hx Systemic Lupus Erythematosus - hx of pre [facility], no issues now Psychiatric Medical History: Reports: Hx Anxiety, Hx Depression, Hx Post Traumatic Stress Disorder Past Surgical History: Reports: Hx Abdominal Surgery - Wili[place] fundoplication, Hx Genitourinary Surgery - wiliam, Hx Gynecologic Surgery - hysterectomy, Hx Hysterectomy, Hx Nose Surgery - Deviated septum repair, Hx Oral Surgery - [place] teeth, Hx Orthopedic Surgery - rotator cuff bilaterally, Hx Thyroid Surgery - Thyroidectomy, Hx Tonsillectomy - Immunizations Immunizations up to date: Yes Hx Diphtheria, Pertussis, Tetanus Vaccination: Yes Hx Pneumococcal Vaccination: 02/26/08 Review of Systems - Review of Systems Constitutional: denies: Chills, Fever EENT: No symptoms reported Cardiovascular: See HPI Respiratory: No symptoms reported Gastrointestinal: No symptoms reported Genitourinary: No symptoms reported Female Genitourinary: No symptoms reported Musculoskeletal: No symptoms reported Skin: No symptoms reported Hematologic/Lymphatic: No symptoms reported Neurological/Psychological: No symptoms reported Physical Exam - Vital signs Vitals: Temp Pulse Resp BP Pulse Ox 98.2 F 76 16 144/70 H 97 07/21/18 12:57 07/21/18 12:57 07/21/18 12:57 07/21/18 12:57 07/21/18 12:57 Notes: Physical exam: GENERAL: Is alert and oriented x3, no acute distress HEAD: Atraumatic, normocephalic. EYES: Pupils equal round and reactive to light, extraocular movements intact, sclera anicteric, conjunctiva are normal. ENT: TMs normal, nares patent, oropharynx clear without exudates. Moist mucous membranes. NECK: Normal range of motion, supple without obvious mass or JVD. LUNGS: Breath sounds clear to auscultation bilaterally and equal. No wheezes rales or rhonchi. HEART: Regular rate and rhythm without murmurs, rubs or gallops. ABDOMEN: Soft, normoactive bowel sounds. No tenderness to palpation. No guarding, no rebound. No masses appreciated. EXTREMITIES: Normal range of motion, no pitting or edema. No clubbing or cyanosis. NEUROLOGICAL: Cranial nerves II through XII grossly intact. Normal speech, moving all extremities. PSYCH: Normal mood, normal affect. SKIN: Warm, Dry, normal turgor, no rashes or lesions noted. Course - Vital Signs Vital signs: Temp Pulse Resp BP Pulse Ox 98.2 F 76 16 144/70 H 97 07/21/18 12:57 07/21/18 12:57 07/21/18 12:57 07/21/18 12:57 07/21/18 12:57 - Laboratory Result Diagrams: 07/21/18 13:40 07/21/18 13:40 Laboratory results interpreted by me: 07/21/18 13:40 BUN 21 H Est GFR (Non-Af Amer) 51 L Calcium 10.3 H - Diagnostic Test Radiology reviewed: Image reviewed, Reports reviewed - Chest x-rays clear - EKG Interpretation by Me Rate: Normal Rhythm: NSR - EKG shows normal sinus rhythm with a ventricular rate of 75, no acute ST-T wave changes Discharge - Discharge Clinical Impression: Chest pain Condition: Stable Disposition: ADMITTED OBSERVATION Admitting Provider: savana Lizarraga NP Unit Admitted: Telemetry
[2018-07-21] MEDS ORDERED: ALBUTEROL SULFATE 0.083% NEB 2.5 MG/3 ML AMPUL NEB PRN (16:18)
[2018-07-21] MEDS ORDERED: GLUCAGON,HUMAN RECOMB 1 MG INJ SUBCUT PRN (16:18)
[2018-07-21] MEDS ORDERED: DEXTROSE 40% GEL 15 GM TUBE PO PRN ×2 (16:18)
[2018-07-21] MEDS ORDERED: DEXTROSE 50%-WATER 25 GM/50 ML DISP.SYRIN IV PRN ×2 (16:18)
[2018-07-21] MEDS ORDERED: ONDANSETRON HCL INJ/PF 4 MG/2 ML SDV IV PRN (16:18)
[2018-07-21] MEDS ORDERED: MAG HYDROX/AL HYDROX/SIMETH SUSP 30 ML UDCUP PO PRN (16:18)
[2018-07-21] MEDS ORDERED: NITROGLYCERIN 0.4 MG/TAB 25 TAB/BOTTLE SL PRN (18:16)
[2018-07-21] MEDS ORDERED: HYDROMORPHONE HCL INJ/PF 2 MG/ML AMPULE IV PRN (18:16)
--- NOTE | 2018-07-21 18:21 | PDOC H&P ---
History of Present Illness Admission Date/PCP: 07/21/18 16:00 LINA TOLENTINO MD Patient complains of: Chest pain History of Present Illness: PRESTON CABALLERO is a 63 year old female who presents to the emergency department with a complaint of 2 days of progressively worsening left chest discomfort that is nonradiating, described as pressure, occurring intermittently without pattern of aggravating or alleviating factors. She does report that she has had persistent, extreme, fatigue for the last 2 to 3 days. She also reports one episode of nausea without emesis and one episode of dizziness 2 days ago that she thinks may have been related to her Mnire's disease. She also notes significant stress factors at home. Evaluation in the emergency department is unremarkable with EKG demonstrating normal sinus rhythm without ST segment changes, benign chest x-ray, and normal laboratory evaluation including a negative troponin. Patient is referred to the hospitalist service for admission and management with chest pain rule out protocol Past Medical History Cardiac Medical History: Reports: Hyperlipidema, Heart Murmur Denies: Myocardial Infarction, Hypertension Pulmonary Medical History: Reports: Pneumonia, Sleep Apnea - uses C-PAP Denies: Asthma, Bronchitis, Chronic Obstructive Pulmonary Disease (COPD) EENT Medical History: Reports: None Neurological Medical History: Denies: Seizures Endocrine Medical History: Reports: Hypothyroidism Denies: Diabetes Mellitus Type 2 Renal/ Medical History: Reports: None GI Medical History: Reports: Gastroesophageal Reflux Disease, Hiatal Hernia, Ulcerative Colitis Musculoskeltal Medical History: Reports: Arthritis Psychiatric Medical History: Reports: Depression, Post Traumatic Stress Disorder Hematology: Reports: Anemia - 4th Past Surgical History Past Surgical History: Reports: Hysterectomy, Orthopedic Surgery - rotator cuff bilaterally, Tonsillectomy Social History Information Source: Patient Lives with: Family Smoking Status: Never Smoker Frequency of Alcohol Use: None Hx Recreational Drug Use: No Hx Prescription Drug Abuse: No - Advance Directive Resuscitation Status: Full Code Family History Family History: Arthritis, Hyperlipidemia, Hypertension, Thyroid Disfunction Parental Family History Reviewed: Yes Children Family History Reviewed: Yes Sibling(s) Family History Reviewed.: Yes Medication/Allergy Home Medications: Furosemide [Lasix 20 mg Tablet] 20 mg PO DAILY 07/18/11 Gabapentin [Neurontin 300 mg Capsule] 300 mg PO BID 07/18/11 Levothyroxine Sodium [Synthroid 112 Mcg Tablet] 125 mcg PO DAILY 07/18/11 Dexlansoprazole [Dexilant 60 mg Capsule] 60 mg PO DAILY 03/11/12 Rosuvastatin Calcium [Crestor 5 mg Tablet] 5 mg PO QHS #0 tablet 03/12/12 Calcium Carb/D3/Magnesium/Zinc [Rene Mag Zinc-D3 Tablet] 1 tab PO DAILY 09/24/16 Sertraline HCl [Zoloft] 200 mg PO QHS 09/24/16 Ubidecarenone [Coq-10] 1 cap PO DAILY 09/24/16 Allergies/Adverse Reactions: cephalexin monohydrate [From Keflex] Allergy (Verified 07/21/18 12:42) Ramón Fco syndrome iodine [Iodine] Allergy (Verified 07/21/18 12:42) Hives levofloxacin [From Levaquin] Allergy (Verified 07/21/18 12:42) Ramón Fco syndrome meloxicam [From Mobic] Allergy (Verified 07/21/18 12:42) morphine [Morphine] Allergy (Verified 07/21/18 12:42) Hives Sulfa (Sulfonamide Antibiotics) Allergy (Verified 07/21/18 12:42) serum sickness milk Adverse Reaction (Mild, Verified 07/21/18 12:42) GI cantaloupe Allergy (Uncoded 07/21/18 12:42) itching Review of Systems Constitutional: PRESENT: fatigue. ABSENT: chills, fever(s), headache(s), weight gain, weight loss Eyes: ABSENT: visual disturbances Ears: ABSENT: hearing changes Cardiovascular: PRESENT: chest pain. ABSENT: dyspnea on exertion, edema, orthropnea, palpitations Respiratory: ABSENT: cough, hemoptysis Gastrointestinal: ABSENT: abdominal pain, constipation, diarrhea, hematemesis, hematochezia, nausea, vomiting Genitourinary: ABSENT: dysuria, hematuria Musculoskeletal: ABSENT: joint swelling Integumentary: ABSENT: rash, wounds Neurological: ABSENT: abnormal gait, abnormal speech, confusion, dizziness, focal weakness, syncope Psychiatric: PRESENT: anxiety. ABSENT: depression, homidical ideation, suicidal ideation Endocrine: ABSENT: cold intolerance, heat intolerance, polydipsia, polyuria Hematologic/Lymphatic: ABSENT: easy bleeding, easy bruising Physical Exam Vital Signs: Temp Pulse Resp BP Pulse Ox 97.8 F 61 20 142/71 H 99 07/21/18 17:27 07/21/18 17:27 07/21/18 17:27 07/21/18 17:27 07/21/18 17:27 Intake & Output 07/20/18 07/21/18 07/22/18 06:59 06:59 06:59 Weight 74.1 kg General appearance: PRESENT: no acute distress, well-developed, well-nourished - overweight Head exam: PRESENT: atraumatic, normocephalic Eye exam: PRESENT: conjunctiva pink, EOMI, PERRLA. ABSENT: scleral icterus Ear exam: PRESENT: normal external ear exam Mouth exam: PRESENT: moist, tongue midline Neck exam: ABSENT: carotid bruit, JVD, lymphadenopathy, thyromegaly Respiratory exam: PRESENT: clear to auscultation jono, symmetrical, unlabored. ABSENT: rales, rhonchi, wheezes Cardiovascular exam: PRESENT: RRR, +S1, +S2. ABSENT: diastolic murmur, rubs, systolic murmur Pulses: PRESENT: normal dorsalis pedis pul Vascular exam: PRESENT: normal capillary refill GI/Abdominal exam: PRESENT: normal bowel sounds, soft. ABSENT: distended, guarding, mass, organolmegaly, rebound, tenderness Rectal exam: PRESENT: deferred Extremities exam: PRESENT: full ROM. ABSENT: calf tenderness, clubbing, pedal edema Neurological exam: PRESENT: alert, awake, oriented to person, oriented to place, oriented to time, oriented to situation, CN II-XII grossly intact. ABSENT: motor sensory deficit Psychiatric exam: PRESENT: anxious, depressed. ABSENT: homicidal ideation, suicidal ideation Skin exam: PRESENT: dry, intact, warm. ABSENT: cyanosis, rash Results Laboratory Results: 07/21/18 13:40 07/21/18 13:40 07/21/18 07/21/18 13:40 13:40 WBC 5.7 RBC 4.41 Hgb 13.7 Hct 41.0 MCV 93 MCH 31.1 MCHC 33.5 RDW 13.2 Plt Count 235 Seg Neutrophils % 64.7 Lymphocytes % 26.7 Monocytes % 6.4 Eosinophils % 1.1 Basophils % 1.1 Absolute Neutrophils 3.7 Absolute Lymphocytes 1.5 Absolute Monocytes 0.4 Absolute Eosinophils 0.1 Absolute Basophils 0.1 Sodium 141.7 Potassium 4.5 Chloride 102 Carbon Dioxide 29 Anion Gap 11 BUN 21 H Creatinine 1.07 Est GFR ( Amer) > 60 Est GFR (Non-Af Amer) 51 L Glucose 95 Calcium 10.3 H Total Bilirubin 0.5 AST 33 ALT 32 Alkaline Phosphatase 87 Total Protein 7.2 Albumin 4.6 07/21/18 13:40 Troponin I < 0.012 Impressions: Chest X-Ray 07/21/18 13:09 IMPRESSION: No acute abnormality of the lungs. Unchanged elevation of the left hemidiaphragm. Assessment and Plan - Diagnosis (1) Chest pain Qualifiers: Chest pain type: unspecified Qualified Code(s): R07.9 - Chest pain, unspecified Is this a current diagnosis for this admission?: Yes Plan: Patient is admitted to the medical floor on continuous cardiac telemetry. Initial troponin is negative, will continue to trend. We will obtain TSH, lipid panel, and A1c for risk stratification with a.m. lab work. Sublingual nitroglycerin tabs with IV Dilaudid as needed for chest pain. Daily aspirin and atorvastatin. Cardiac diet. Stress test in the morning. Heparin for DVT prophylaxis. (2) Hypothyroidism Qualifiers: Hypothyroidism type: acquired Qualified Code(s): E03.9 - Hypothyroidism, unspecified Is this a current diagnosis for this admission?: Yes Plan: Patient reports acquired hypothyroidism secondary to thyroidectomy. TSH level in the morning. Continue home dose levothyroxine. (3) GERD (gastroesophageal reflux disease) Is this a current diagnosis for this admission?: Yes Plan: Pepcid twice daily. Continue home dose Dexilant. (4) Depression Qualifiers: Depression Type: major depressive disorder Major depression recurrence: recurrent Major depression episode severity: moderate Is this a current diagnosis for this admission?: Yes Plan: Patient reports chronic depression, PTSD, asthma with multiple significant home stressors and caregiver fatigue. She denies SI/HI Continue home dose Zoloft. Consider mental health consultation. - Time Time Spent with patient: 35 or more minutes Medications reviewed and adjusted accordingly: Yes Anticipated discharge: Home Within: within 24 hours
[2018-07-21] MEDS: HEPARIN SOD (PORCINE) 5,000 UNIT/ML 1 ML SYRINGE SUBCUT SCH (21:51)
[2018-07-21] MEDS: FAMOTIDINE 20 MG TABLET PO SCH (21:51)
[2018-07-21] MEDS ORDERED: ASPIRIN 81 MG TABLET, CHEWABLE PO SCH (22:00)
[2018-07-21] MEDS ORDERED: SERTRALINE HCL 50 MG TABLET PO SCH (22:00)
[2018-07-21] MEDS ORDERED: ATORVASTATIN CALCIUM 20 MG TABLET PO SCH (22:00)
[2018-07-22] MEDS: ACETAMINOPHEN 325 MG TABLET PO PRN ×2 (00:49→10:45)
[2018-07-22 03:44] LABS: HEMATOCRIT 39.5 % (36.0-47.0); HEMOGLOBIN 13.3 g/dL (12.0-15.5); MEAN CORPUSCULAR HEMOGLOBIN 31.2 pg (27.0-33.4); MEAN CORPUSCULAR HGB CONC 33.6 g/dL (32.0-36.0); MEAN CORPUSCULAR VOLUME 93 fl (80-97); PLATELET COUNT 184 10^3/uL (150-450); RED BLOOD COUNT 4.24 10^6/uL (3.72-5.28); RED CELL DISTRIBUTION WIDTH 12.6 % (11.5-14.0); WHITE BLOOD COUNT 4.6 10^3/uL (4.0-10.5)
[2018-07-22 04:02] LABS: ANION GAP 8 (5-19); BLOOD UREA NITROGEN 24 mg/dL (7-20); CALCIUM 9.9 mg/dL (8.4-10.2); CARBON DIOXIDE 30 mmol/L (22-30); CHLORIDE 103 mmol/L (98-107); CHOLESTEROL 162.56 mg/dL (0-200); GLUCOSE 104 mg/dL (75-110); POTASSIUM 4.5 mmol/L (3.6-5.0); SODIUM 140.7 mmol/L (137-145); TRIGLYCERIDES 190 mg/dL (<150)
[2018-07-22 04:14] LABS: DIRECT LDL 67 mg/dL (<100)
[2018-07-22] MEDS: HEPARIN SOD (PORCINE) 5,000 UNIT/ML 1 ML SYRINGE SUBCUT SCH ×2 (05:59→13:37)
[2018-07-22] MEDS ORDERED: PANTOPRAZOLE SODIUM 40 MG TABLET.DR PO SCH (06:00)
[2018-07-22] MEDS ORDERED: LEVOTHYROXINE SODIUM 0.112 MG TABLET PO SCH ×2 (08:00→10:00)
[2018-07-22] MEDS ORDERED: LEVOTHYROXINE SODIUM 0.1 MG TABLET PO SCH (08:30)
[2018-07-22] MEDS ORDERED: LEVOTHYROXINE SODIUM 0.025 MG TABLET PO SCH (08:30)
[2018-07-22] MEDS ORDERED: DOCUSATE SODIUM 100 MG CAPSULE PO SCH (10:00)
[2018-07-22] MEDS ORDERED: GABAPENTIN 300 MG CAPSULE PO SCH (10:00)
[2018-07-22] MEDS: FAMOTIDINE 20 MG TABLET PO SCH (10:41)
[2018-07-22] MEDS ORDERED: REGADENOSON INJ 0.4 MG/5 ML DISP.SYRIN IV ONE (14:46)
[2018-07-22 15:59] VITALS: BP 142/72
--- NOTE | 2018-07-22 18:17 | PDOC DISCHARGE SUMMARY ---
General - Admit/Disc Date/PCP Admission Date/Primary Care Provider: 07/21/18 16:00 LINA TOLENTINO MD Discharge Date: 07/22/18 - Discharge Diagnosis (1) Chest pain Is this a current diagnosis for this admission?: Yes - Additional Information Resuscitation Status: Full Code Discharge Diet: Cardiac Discharge Activity: Activity As Tolerated Home Medications: Furosemide [Lasix 20 mg Tablet] 20 mg PO DAILY 07/18/11 Gabapentin [Neurontin 300 mg Capsule] 300 mg PO BID 07/18/11 Levothyroxine Sodium [Synthroid 0.112 mg Tablet] 112 mcg PO Q6AM 07/18/11 Dexlansoprazole [Dexilant 60 mg Capsule] 60 mg PO QHS 03/11/12 Rosuvastatin Calcium [Crestor 5 mg Tablet] 5 mg PO QHS #0 tablet 03/12/12 Calcium Carb/D3/Magnesium/Zinc [Rene Mag Zinc-D3 Tablet] 1 tab PO DAILY 09/24/16 Sertraline HCl [Zoloft] 200 mg PO QHS 09/24/16 Ubidecarenone [Coq-10] 1 cap PO DAILY 09/24/16 Lifitegrast [Xiidra] 2 drop OU BID 07/21/18 Cetirizine HCl [Zyrtec 10 mg Tablet] 10 mg PO DAILY 07/22/18 Folic Acid [Folvite 1 mg Tablet] 1 mg PO DAILY 07/22/18 History of Present Illness History of Present Illness: PRESTON CABALLERO is a 63 year old female who presents to the emergency department with a complaint of 2 days of progressively worsening left chest discomfort that is nonradiating, described as pressure, occurring intermittently without pattern of aggravating or alleviating factors. She does report that she has had persistent, extreme, fatigue for the last 2 to 3 days. She also reports one episode of nausea without emesis and one episode of dizziness 2 days ago that she thinks may have been related to her Mnire's disease. She also notes significant stress factors at home. Evaluation in the emergency department is unremarkable with EKG demonstrating normal sinus rhythm without ST segment changes, benign chest x-ray, and normal laboratory evaluation including a negative troponin. Patient is referred to the hospitalist service for admission and management with chest pain rule out protocol Hospital Course Hospital Course: Troponins were negative. Patient was pain-free. Stress test was negative. She will continue her home meds including aspirin daily. She was discharged in good condition. Physical Exam Vital Signs: Temp Pulse Resp BP Pulse Ox 98.3 F 73 18 142/72 H 100 07/22/18 15:56 07/22/18 15:56 07/22/18 15:56 07/22/18 15:56 07/22/18 15:56 Intake & Output 07/21/18 07/22/18 07/23/18 06:59 06:59 06:59 Weight 74.2 kg General appearance: PRESENT: no acute distress, cooperative, disheveled Respiratory exam: PRESENT: clear to auscultation jono, symmetrical, unlabored. ABSENT: accessory muscle use, chest wall tenderness, crackles, prolonged expiratory phas, rhonchi, tachypnea, wheezes Cardiovascular exam: PRESENT: RRR, +S1, +S2 Pulses: PRESENT: normal carotid pulses Vascular exam: PRESENT: normal capillary refill GI/Abdominal exam: PRESENT: normal bowel sounds, soft. ABSENT: distended, guarding, rebound, tenderness Extremities exam: ABSENT: clubbing, pedal edema Musculoskeletal exam: PRESENT: normal inspection. ABSENT: deformity Neurological exam: PRESENT: alert, awake, oriented to person, oriented to place, oriented to time, oriented to situation Psychiatric exam: PRESENT: appropriate affect, normal mood Skin exam: PRESENT: dry, warm Results Laboratory Results: 07/22/18 03:09 07/22/18 03:09 07/22/18 07/22/18 07/22/18 03:09 03:09 03:09 WBC 4.6 RBC 4.24 Hgb 13.3 Hct 39.5 MCV 93 MCH 31.2 MCHC 33.6 RDW 12.6 Plt Count 184 Sodium 140.7 Potassium 4.5 Chloride 103 Carbon Dioxide 30 Anion Gap 8 BUN 24 H Creatinine 1.11 Est GFR ( Amer) > 60 Est GFR (Non-Af Amer) 49 L Glucose 104 Calcium 9.9 Triglycerides 190 H Cholesterol 162.56 LDL Cholesterol Direct 67 VLDL Cholesterol 38.0 H HDL Cholesterol 76 TSH 0.31 L 07/21/18 07/21/18 07/22/18 13:40 21:07 03:09 Troponin I < 0.012 < 0.012 < 0.012 Impressions: Chest X-Ray 07/21/18 13:09 IMPRESSION: No acute abnormality of the lungs. Unchanged elevation of the left hemidiaphragm. Qualifiers - * PATIENT BEING DISCHARGED WITH ANY OF THE FOLLOWING DIAGNOSIS: No Acute Heart Failure Is this a Heart Failure Patient?: No Plan Time Spent: Greater than 30 Minutes
--- NOTE | 2018-07-22 21:17 | DRAGON STRESS TEST REPORT ---
Intravenous Lexiscan Cardiolite stress test using single photon emmision computerized tomography. Date of procedure: 07/22/2018. Ordering Provider: Ms. Kriss Lizarraga, nurse practitioner. Patient's status: Inpatient Indication: Chest pain. Coronary risk factors: Age, and dyslipidemia. Resting EKG: Sinus Rhythm. Within Normal Limits. Stress EKG: No changes of ischemia. The patient had no chest pain or discomfort, and there were no arrhythmias seen. Reason for termination: Protocol. Conclusions: Normal EKG and hemodynamic response to IV Lexiscan. Nuclear data: At rest the patient was given 11.02 millicuries of technetium 99m sestamibi injected intravenously. As per protocol rest non gated SPECT images were obtained. Subsequently the patient was given intravenous Lexiscan at a dose of 0.4 mg in 5 mL intravenously, followed by flush with normal saline. Subsequently the stress dose of 34.5 millicuries of technetium 99m sestamibi was injected intravenously. As per protocol stress gated images were obtained. Nuclear interpretation: Review of images showed that there is mild breast attenuation artifact of the anterior wall in both the rest and stress images. This area of the anterior wall had normal motion contraction and thickening. Hence this is a soft tissue attenuation artifact. The rest of the segments of the myocardium had normal perfusion at rest, and normal perfusion post stress with IV Lexiscan. All segments of the myocardium had normal motion, contraction, and thickening by gated study. T. I D. ratio was read as abnormal at 1.28. Visually this is not reliable. There is no transient ischemic dilatation of the left ventricle. Computer read rest, and stress left ventricular ejection fraction were 64 %, and 68 %, respectively. Conclusion: 1. There is no scintigraphic evidence of Lexiscan induced myocardial ischemia. 2. There is no scintigraphic evidence of myocardial infarction/scar. 3. Mild anterior wall breast tissue attenuation artifact. Recommendations: Aggressive risk factor modification, and treating the underlying co- morbidities. [facility]
== END 2018-07-22 16:24 | disposition home or self-care (01) ==
LOC: ER 12:41 → EH 16:00 → 5 17:21
PROVIDERS: ADMIT Internal Medicine; ATTEND Internal Medicine
DX: R07.89 Other chest pain (principal); R11.0 Nausea; M35.00 Sjogren syndrome, unspecified; H81.09 Meniere's disease, unspecified ear; E78.5 Hyperlipidemia, unspecified; K21.9 Gastro-esophageal reflux disease without esophagitis; E89.0 Postprocedural hypothyroidism; F41.9 Anxiety disorder, unspecified; E66.3 Overweight; F33.9 Major depressive disorder, recurrent, unspecified; F43.10 Post-traumatic stress disorder, unspecified; J45.909 Unspecified asthma, uncomplicated; G47.30 Sleep apnea, unspecified; Z73.3 Stress, not elsewhere classified; Z79.899 Other long term (current) drug therapy; Z87.19 Personal history of other diseases of the digestive system; Z82.49 Family history of ischemic heart disease and other diseases of the circulatory system; Z63.6 Dependent relative needing care at home; Z86.73 Personal history of transient ischemic attack (TIA), and cerebral infarction without residual deficits; Z98.890 Other specified postprocedural states; Z86.79 Personal history of other diseases of the circulatory system
CPT/HCPCS: 93005; 99285; 36415 ×2; 84443; 85025; 85027; 80048; 80053; 84484 ×2; 83036; 80061; 93017; 71045; 78452; 93010; 94660 ×2; G0378 ×3; A9500; J2785; A9270 ×9; J1644 ×2; J2405; Q9969; J3490

== ENCOUNTER → 2018-09-03 | Outpatient (CLI) | payer MEDICARE, OTHER ==
[2018-09-03 10:11] LABS: FREE T3 4.11 pg/mL (2.77-5.27); FREE T4 (FREE THYROXINE) 1.22 ng/dL (0.78-2.19)
== END ==
LOC: OD 08:24
PROVIDERS: ATTEND Family Medicine
DX: E89.0 Postprocedural hypothyroidism (principal)
CPT/HCPCS: 36415; 84439; 84481

== ENCOUNTER → 2018-12-08 | Outpatient (CLI) | payer MEDICARE, OTHER ==
[2018-12-08 14:39] LABS: APPEARANCE,URINE CLEAR; BILIRUBIN,URINE NEGATIVE (NEGATIVE); COLOR,URINE YELLOW; GLUCOSE, URINE NEGATIVE (NEGATIVE); KETONES,URINE NEGATIVE (NEGATIVE); LEUKOCYTE ESTERASE,URINE SMALL (NEGATIVE); NITRITE,URINE NEGATIVE (NEGATIVE); PROTEIN,URINE NEGATIVE (NEGATIVE); URINE SPECIFIC GRAVITY 1.013; UROBILINOGEN,URINE NEGATIVE mg/dL (<2.0)
[2018-12-10 09:06] LABS: CREATININE 0.99 mg/dL (0.52-1.25)
[2018-12-10 09:48] LABS: URINE CREATININE 38.7 mg/dL (15-278)
== END ==
LOC: OD 13:38
PROVIDERS: ATTEND Family Medicine
DX: E78.5 Hyperlipidemia, unspecified (principal); N18.3 Chronic kidney disease, stage 3 (moderate)
CPT/HCPCS: 36415; 81001; 82550; 82575

== ENCOUNTER → 2019-02-26 | Outpatient (CLI) | payer MEDICARE, OTHER ==
[2019-02-26 12:33] LABS: FREE T3 3.14 pg/mL (2.77-5.27); FREE T4 (FREE THYROXINE) 1.25 ng/dL (0.78-2.19)
[2019-02-26 12:46] LABS: THYROID STIMULATING HORMONE 0.48 uIU/mL (0.47-4.68)
== END ==
LOC: OD 11:09
PROVIDERS: ATTEND Family Medicine
DX: E89.0 Postprocedural hypothyroidism (principal)
CPT/HCPCS: 36415; 84439; 84443; 84481

== ENCOUNTER → 2019-04-07 | Outpatient (CLI) | payer MEDICARE, OTHER ==
--- NOTE | 2019-04-07 13:30 | WOMENS IMAGING REPORT ---
EXAM DESCRIPTION: 3D SCREENING MAMMO BILAT COMPLETED DATE/TIME: 04/07/2019 10:37 am REASON FOR STUDY: Z12.31 ENCOUNTER FOR SCREENING MAMMOGRAM FOR MALIGNANT NEOPLASM OF BREAST Z12.31 ENCNTR SCREEN MAMMOGRAM FOR MALIGNANT NEOPLASM OF ESVIN COMPARISON: 05/20/2017 and 03/08/2016. EXAM PARAMETERS: Views: Standard craniocaudal and mediolateral oblique views of each breast recorded using digital acquisition and breast tomosynthesis. Read with the assistance of CAD. .[facility] - R2 [employer] Version 9.2 LIMITATIONS: None. FINDINGS: No suspicious masses, suspicious calcifications or architectural distortion. No areas of c oncern. IMPRESSION: NEGATIVE MAMMOGRAM. BIRADS 1. BREAST DENSITY: b. There are scattered areas of fibroglandular density. BIRAD: ASSESSMENT: 1 NEGATIVE RECOMMENDATION: ROUTINE SCREENING COMMENT: The patient has been notified of the results by letter per MQSA requirements. Additional no tification policies are in place for contacting patient with suspicious or incomplete findings. Quality ID #[id number]: The [employer] recommends an annual screening mammogram for women aged 40 years or over. This facility utilizes a reminder system to ensure that all patients receive reminder letters, and/or direct phone calls for appointments. This includes reminders for routine scr eening mammograms, diagnostic mammograms, or other Breast Imaging Interventions when appropriate. Th is patient will be placed in the appropriate reminder system. TECHNICAL DOCUMENTATION: FINDING NUMBER: (1) ASSESSMENT: (1) JOB ID: [id number] 2010 [employer]- All Rights Reserved Reading location - IP/workstation name: [email or web address]
== END ==
LOC: WI 10:15
PROVIDERS: ATTEND Family Medicine
DX: Z12.31 Encounter for screening mammogram for malignant neoplasm of breast (principal)
CPT/HCPCS: 77063; 77067

== ENCOUNTER → 2019-09-14 | Outpatient (CLI) | payer MEDICARE, OTHER ==
[2019-09-14 11:25] LABS: ABSOLUTE BASOPHILS # (AUTO) 0.1 10^3/uL (0.0-0.2); ABSOLUTE EOSINOPHILS # (AUTO) 0.1 10^3/uL (0.0-0.6); ABSOLUTE LYMPHOCYTES (AUTO) 1.3 10^3/uL (0.5-4.7); ABSOLUTE MONOCYTES (AUTO) 0.4 10^3/uL (0.1-1.4); ABSOLUTE NEUT (AUTO) 3.5 10^3/uL (1.7-8.2); BASOPHILS % (AUTO) 1.1 % (0-2); EOSINOPHILS % (AUTO) 2.3 % (0-6); HEMATOCRIT 39.8 % (36.0-47.0); HEMOGLOBIN 13.6 g/dL (12.0-15.5); LYMPHOCYTES % (AUTO) 24.9 % (13-45); MEAN CORPUSCULAR HEMOGLOBIN 30.9 pg (27.0-33.4); MEAN CORPUSCULAR HGB CONC 34.1 g/dL (32.0-36.0); MEAN CORPUSCULAR VOLUME 91 fl (80-97); MONOCYTES % (AUTO) 6.8 % (3-13); PLATELET COUNT 255 10^3/uL (150-450); RED BLOOD COUNT 4.39 10^6/uL (3.72-5.28); RED CELL DISTRIBUTION WIDTH 12.8 % (11.5-14.0); SEGMENTED NEUTROPHILS % (AUTO) 64.9 % (42-78); TOTAL CELLS COUNTED % (AUTO) 100 %; WHITE BLOOD COUNT 5.4 10^3/uL (4.0-10.5)
[2019-09-14 11:51] LABS: ALBUMIN 4.8 g/dL (3.5-5.0); ALKALINE PHOSPHATASE 80 U/L (38-126); ANION GAP 6 (5-19); ASPARTATE AMINO TRANSFERASE 28 U/L (14-36); BILIRUBIN,TOTAL 0.5 mg/dL (0.2-1.3); BLOOD UREA NITROGEN 18 mg/dL (7-20); CALCIUM 10.7 mg/dL (8.4-10.2); CARBON DIOXIDE 32 mmol/L (22-30); CHLORIDE 98 mmol/L (98-107); CHOLESTEROL 213.43 mg/dL (0-200); GLUCOSE 110 mg/dL (75-110); IRON(TIBC) 57.4 ug/dL (37-170); POTASSIUM 4.6 mmol/L (3.6-5.0); TOTAL PROTEIN 7.5 g/dL (6.3-8.2); TRIGLYCERIDES 248 mg/dL (<150)
[2019-09-14 12:02] LABS: DIRECT LDL 89 mg/dL (<100)
[2019-09-14 12:04] LABS: FREE T3 3.93 pg/mL (2.77-5.27); FREE T4 (FREE THYROXINE) 1.36 ng/dL (0.78-2.19)
[2019-09-14 12:18] LABS: THYROID STIMULATING HORMONE 0.13 uIU/mL (0.47-4.68)
[2019-09-14 12:41] LABS: VLDL CHOLESTEROL 49.6 mg/dL (10-31)
== END ==
LOC: OD 09:48
PROVIDERS: ATTEND Family Medicine
DX: E55.9 Vitamin D deficiency, unspecified (principal); E89.0 Postprocedural hypothyroidism; D50.9 Iron deficiency anemia, unspecified; E78.5 Hyperlipidemia, unspecified; R73.9 Hyperglycemia, unspecified; Z79.899 Other long term (current) drug therapy
CPT/HCPCS: 36415; 80053; 80061; 82306; 82607; 82728; 83036; 83540; 83550; 84439; 84443; 84481; 85025

== ENCOUNTER → 2020-03-05 | Outpatient (CLI) | payer MEDICARE, OTHER ==
[2020-03-05 12:57] LABS: ALBUMIN 4.5 g/dL (3.5-5.0); ALKALINE PHOSPHATASE 99 U/L (38-126); ASPARTATE AMINO TRANSFERASE 39 U/L (14-36); BILIRUBIN,DIRECT 0.2 mg/dL (0.0-0.4); BILIRUBIN,TOTAL 0.5 mg/dL (0.2-1.3); BLOOD UREA NITROGEN 18 mg/dL (7-20); CALCIUM 10.2 mg/dL (8.4-10.2); CHOLESTEROL 297.43 mg/dL (0-200); GLUCOSE 105 mg/dL (75-110); POTASSIUM 4.7 mmol/L (3.6-5.0); TOTAL PROTEIN 7.1 g/dL (6.3-8.2); TRIGLYCERIDES 244 mg/dL (<150)
[2020-03-05 13:02] LABS: CARBON DIOXIDE 32 mmol/L (22-30); CHLORIDE 101 mmol/L (98-107)
[2020-03-05 13:08] LABS: DIRECT LDL 187 mg/dL (<100)
[2020-03-05 13:16] LABS: ABSOLUTE EOSINOPHILS # (AUTO) 0.1 10^3/uL (0.0-0.6); ABSOLUTE LYMPHOCYTES (AUTO) 1.7 10^3/uL (0.5-4.7); ABSOLUTE MONOCYTES (AUTO) 0.3 10^3/uL (0.1-1.4); ABSOLUTE NEUT (AUTO) 2.9 10^3/uL (1.7-8.2); BASOPHILS % (AUTO) 0.4 % (0-2); EOSINOPHILS % (AUTO) 1.5 % (0-6); FREE T3 3.85 pg/mL (2.77-5.27); FREE T4 (FREE THYROXINE) 1.63 ng/dL (0.78-2.19); HEMATOCRIT 42.7 % (36.0-47.0); HEMOGLOBIN 14.2 g/dL (12.0-15.5); LYMPHOCYTES % (AUTO) 34.1 % (13-45); MEAN CORPUSCULAR HGB CONC 33.3 g/dL (32.0-36.0); MEAN CORPUSCULAR VOLUME 90 fl (80-97); MONOCYTES % (AUTO) 6.1 % (3-13); PLATELET COUNT 260 10^3/uL (150-450); RED BLOOD COUNT 4.73 10^6/uL (3.72-5.28); RED CELL DISTRIBUTION WIDTH 14.7 % (11.5-14.0); SEGMENTED NEUTROPHILS % (AUTO) 57.9 % (42-78); TOTAL CELLS COUNTED % (AUTO) 100 %
[2020-03-05 13:30] LABS: THYROID STIMULATING HORMONE 0.26 uIU/mL (0.47-4.68)
[2020-03-05 13:53] LABS: ANION GAP 4 (5-19); VLDL CHOLESTEROL 48.8 mg/dL (10-31)
== END ==
LOC: OD 11:34
PROVIDERS: ATTEND Family Medicine
DX: E78.5 Hyperlipidemia, unspecified (principal); E55.9 Vitamin D deficiency, unspecified; E89.0 Postprocedural hypothyroidism; E53.9 Vitamin B deficiency, unspecified; R73.9 Hyperglycemia, unspecified; D50.9 Iron deficiency anemia, unspecified; Z79.899 Other long term (current) drug therapy
CPT/HCPCS: 36415; 80053; 80061; 82306; 82607; 82728; 83036; 84439; 84443; 84481; 85025